=== PATIENT | female | born 1980 | race Caucasian/White ===

== ENCOUNTER → 2017-05-23 | Outpatient (CLI) | payer BC ==
[~2017-05-23] MED LIST: LORTAB 5/500 TA1 TA1 PO
--- NOTE | ~2017-05-23 | CR181 ---
[facility] A Service of [facility] RADIOLOGY TEXT RESULTS PATIENT: ITALO STEINER LOCATION: [facility] : 78 UNIT #: [id number] AGE: [address]: Kanika Suero SEX: F ORDER DR: [id number] [facility] [address] [place], [place] [address] [id number] O MR#: [id number] Acc #: [id number] NAME: ITALO STEINER : 1980 SEX: F STUDY DATE/TIME: 05/23/2017 11:50 UNIT: [facility] ROOM: STUDY DESCRIPTION: CR Lumbar Spine 2 or 3 Views Attending Physician: Kaniak Suero A.P.R.N. Referring Physician: Kanika Suero A.P.R.N. Ordering Physician: Kanika Suero A.P.R.N. Primary Care Physician: Daniel Romero M.D. MEDICAL IMAGING REPORT This report is preliminary unless electronic signature is present EXAM Lumbar spine 05/23/2017 HISTORY 36-year-old female, status post fall, persistent low back pain, hip pain and knee pain. COMPARISON STUDIES None FINDINGS AP and lateral views of the lumbar spine demonstrate normal lumbar alignment and curvature. Vertebral body heights are preserved. Disc space narrowing is present at L4-5 with very small anterior marginal osteophytes. Posterior elements are intact. Large body habitus noted with previous gastric banding. IMPRESSION 1. No acute lumbar abnormality. 2. Disc osteophyte complex L4-5 disc space. 3. Large body habitus. Dictated by... Med Bartlett M.D. THIS IS AN ELECTRONICALLY VERIFIED REPORT Med Bartlett M.D. at 05/26/2017 8:05 AM Ines TD: 05/23/2017 16:47 JOB #: [id number] MEDICAL IMAGING REPORT [facility] A Service of [facility] RADIOLOGY TEXT RESULTS PATIENT: ITALO STEINER LOCATION: [facility] #: [id number] : 78 UNIT #: [id number] AGE: [address]: Kanika Suero SEX: F ORDER DR: Page 1 of 1 COPY
--- NOTE | ~2017-05-23 | CR150 ---
[facility] A Service of [facility] RADIOLOGY TEXT RESULTS PATIENT: ITALO STEINER LOCATION: [facility] : 78 UNIT #: [id number] AGE: [address]: Kanika Suero SEX: F ORDER DR: [id number] [facility] [address] [place], [place] [address] [id number] O MR#: [id number] Acc #: [id number] NAME: ITALO STEINER : 1980 SEX: F STUDY DATE/TIME: 05/23/2017 11:51 UNIT: [facility] ROOM: STUDY DESCRIPTION: CR Hip Min 2 Views Lt Attending Physician: Kanika Suero A.P.R.N. Referring Physician: Kanika Suero A.P.R.N. Ordering Physician: Kanika Suero A.P.R.N. Primary Care Physician: Daniel Romero M.D. MEDICAL IMAGING REPORT This report is preliminary unless electronic signature is present EXAM Left hip, 05/23/2017; [facility]. HISTORY 36-year-old female left hip pain following fall. FINDINGS AP pelvis with frog-leg lateral view of the left hip demonstrates intact bone structure throughout. I see no pelvic fracture and no hip fracture. There is no joint space narrowing. There are no cystic erosions. Bone mineralization is preserved. IMPRESSION Negative left hip. No acute pelvic abnormality. Large body habitus. Dictated by... Med Bartlett M.D. THIS IS AN ELECTRONICALLY VERIFIED REPORT Med Bartlett M.D. at 05/26/2017 8:05 AM GUILLERMO/adair TD: 05/23/2017 16:53 JOB #: [id number] MEDICAL IMAGING REPORT Page 1 of 1 COPY
--- NOTE | ~2017-05-23 | CR169 ---
[facility] A Service of [facility] RADIOLOGY TEXT RESULTS PATIENT: ITALO STEINER LOCATION: [facility] : 78 UNIT #: [id number] AGE: [address]: Kanika Suero SEX: F ORDER DR: [id number] [facility] [address] [place], [place] [address] [id number] O MR#: [id number] Acc #: [id number] NAME: ITALO STEINER : 1980 SEX: F STUDY DATE/TIME: 05/23/2017 11:51 UNIT: [facility] ROOM: STUDY DESCRIPTION: CR Knee 2 Views Lt Attending Physician: Kanika Suero A.P.R.N. Referring Physician: Kanika Suero A.P.R.N. Ordering Physician: Kanika Suero A.P.R.N. Primary Care Physician: Daniel Romero M.D. MEDICAL IMAGING REPORT This report is preliminary unless electronic signature is present EXAM Left knee 05/23/2017 HISTORY 36-year-old female, left knee pain following fall. FINDINGS AP and lateral views of the left knee demonstrate preservation of the joint space. There is no evidence for fracture. Patella is anatomically positioned. Generous soft tissues. IMPRESSION Negative left knee. Dictated by... Med Bartlett M.D. THIS IS AN ELECTRONICALLY VERIFIED REPORT Med Bartlett M.D. at 05/26/2017 8:05 AM Ines TD: 05/23/2017 16:51 JOB #: [id number] MEDICAL IMAGING REPORT Page 1 of 1 COPY
== END | disposition home or self-care (01) ==
LOC: CRAD 11:36
DX: M25.562 Pain in left knee (principal); M25.552 Pain in left hip; M54.5 Low back pain; M25.78 Osteophyte, vertebrae
CPT/HCPCS: 72100; 73502; 73560